=== PATIENT | female | born 1995 | race Caucasian/White ===

== ENCOUNTER 2019-11-04 06:00 | Inpatient (IN) ==
[2019-11-04] MEDS ORDERED: Ondansetron 4 MG/2 ML VIAL IVP PRN ×2 (06:40→08:56)
[2019-11-04] MEDS ORDERED: Naloxone 0.4 MG/ML INJ IVP PRN ×2 (06:40→08:56)
[2019-11-04] MEDS ORDERED: Metoclopramide 10 MG/2 ML VIAL IVP PRN (06:40)
[2019-11-04] MEDS ORDERED: Azithromycin 500 MG in 0.9 % Sodium Chloride 250 ML IVPB ONE (06:40)
[2019-11-04] MEDS ORDERED: Lidocaine 1% 20 ML MDV ID PRN (06:40)
[2019-11-04] MEDS ORDERED: miSOPROStoL 25 MCG TABLET PO PRN (06:40)
[2019-11-04] MEDS ORDERED: Famotidine 20 MG/2 ML VIAL IVP PRN (06:40)
[2019-11-04] MEDS: Ringers Solution, Lactated 1,000 ML IVC SCH ×2 (06:57→17:55)
[2019-11-04 07:03] LABS: Basophils % 0.2 %; Eosinophils # 0.2 K/mcL (0.0-0.6); Eosinophils % 1.2 %; Hematocrit 39.1 % (35.3-44.9); Hemoglobin 13.3 g/dL (11.5-15.4); Immature Granulocytes % 0.3 % (0-4); Lymphocytes # 3.5 K/mcL (0.6-4.6); Lymphocytes % 26.5 %; Mean Corpuscular Hemoglobin 29.3 pg (28.0-33.3); Mean Corpuscular Volume 86.1 fL (83.0-100.0); Mean Platelet Volume 9.4 fL (9.4-12.4); Monocytes # 0.8 K/mcL (0.0-1.3); Neutrophils # 8.7 K/mcL (1.6-8.9); Platelet Count 315 K/mcL (140-400); Red Blood Count 4.54 M/mcL (3.82-4.97); Red Cell Distribution Width 13.9 % (11.5-14.5); Segmented Neutrophils % 65.8 %; White Blood Count 13.2 K/mcL (4.3-11.1)
[2019-11-04 07:25] LABS: Glucose 86 mg/dL (70-105)
[2019-11-04 07:30] LABS: Amphetamine Screen,Urine Negative ng/mL (Cutoff=1000); Barbiturate Screen,Urine Negative ng/mL (Cutoff=200); Benzodiazepines Screen,Urine Negative ng/mL (Cutoff=200); Cannabinoid Screen,Urine Negative ng/mL (Cutoff = 50); Cocaine Screen,Urine Negative ng/mL (Cutoff= 300); Opiate Screen,Urine Negative ng/mL (Cutoff=300); Phencyclidine Screen,Urine Negative ng/mL (Cutoff=25)
[2019-11-04 08:47] LABS: Alanine Aminotransferase 9 Units/L (7-52); Aspartate Amino Transferase 13 Units/L (13-39); BUN/Creatinine Ratio 23 (6-26); Blood Urea Nitrogen 14 mg/dL (6-20); Lactate Dehydrogenase 172 Units/L (140-271); Uric Acid 4.6 mg/dL (2.3-7.6); eGFR For African Americans > 60 (> 60); eGFR For Non-African Americans > 60 (> 60)
[2019-11-04] MEDS ORDERED: *HR* FentaNYL (PF) 100 MCG/2 ML VIAL EP ONE (08:56)
[2019-11-04] MEDS ORDERED: EPHEDrine 50 MG/ML VIAL IVP PRN (08:56)
[2019-11-04] MEDS ORDERED: Ropivacaine/PF 0.2% 20 ML VIAL EP ONE (08:56)
[2019-11-04] MEDS ORDERED: Epidural Premix (fent/bupiv) 110 ML EP SCH (09:00)
[2019-11-04 09:58] LABS: Creatinine,Urine 96 mg/dL; Protein/Creatinine Ratio,Urine 0.28 mg/mg (0.00-0.20)
[2019-11-04] MEDS ORDERED: Oxytocin 20 units/ LR 1000 mL 20 UNIT/1,000 ML BAG IVC SCH (10:30)
[2019-11-04] MEDS ORDERED: *HR* FentaNYL (PF) 100 MCG/2 ML VIAL ONE (16:34)
[2019-11-04] MEDS ORDERED: Ropivacaine/PF 0.2% 20 ML VIAL ONE (16:34)
[2019-11-04] MEDS ORDERED: *HR* Ropivacaine/PF 0.5% 20 ML VIAL ONE (18:30)
[2019-11-05] MEDS ORDERED: Measles/Mumps/Rubella Vacc 0.5 ML VIAL SQ PRN (06:10)
[2019-11-05] MEDS ORDERED: Oxytocin 20 units/ LR 1000 mL 20 UNIT/1,000 ML BAG IVC SCH (06:10)
[2019-11-05] MEDS ORDERED: Acetaminophen 325 MG TABLET PO PRN (06:10)
[2019-11-05] MEDS ORDERED: Rho Immune Globulin 1,500 UNIT SYRINGE IM PRN (06:10)
[2019-11-05] MEDS: Ibuprofen 600 MG TABLET PO PRN ×3 (07:28→20:33)
[2019-11-05] MEDS ORDERED: NON-FORMULARY MEDICATION 1 EACH EACH (Pnv No.95/Ferrous Fum/Folic Ac [Prenatal Caplet] 1 E PO SCH (09:00)
[2019-11-05] MEDS ORDERED: Prenatal Vit/FA 1 EACH TABLET PO SCH (09:00)
[2019-11-06 06:18] LABS: Basophils % 0.2 %; Eosinophils # 0.2 K/mcL (0.0-0.6); Eosinophils % 1.3 %; Hematocrit 33.3 % (35.3-44.9); Immature Granulocytes % 0.4 % (0-4); Lymphocytes # 2.9 K/mcL (0.6-4.6); Lymphocytes % 21.4 %; Mean Corpuscular Hemoglobin 28.6 pg (28.0-33.3); Mean Corpuscular Volume 86.5 fL (83.0-100.0); Mean Platelet Volume 9.4 fL (9.4-12.4); Monocytes # 0.9 K/mcL (0.0-1.3); Monocytes % 6.6 %; Neutrophils # 9.3 K/mcL (1.6-8.9); Platelet Count 235 K/mcL (140-400); Red Blood Count 3.85 M/mcL (3.82-4.97); Red Cell Distribution Width 14.1 % (11.5-14.5); Segmented Neutrophils % 70.1 %; White Blood Count 13.3 K/mcL (4.3-11.1)
[2019-11-06 08:20] VITALS: BP 133/84
[2019-11-06] MEDS: Ibuprofen 600 MG TABLET PO PRN (08:54)
== END 2019-11-06 11:15 | disposition home or self-care (01) | DRG 560 ==
LOC: 1NENULAB 06:15 → 1NENUOBS 11-05 08:08
PROVIDERS: ADMIT Obstetrics & Gynecology; ATTEND Obstetrics & Gynecology

== ENCOUNTER 2021-12-21 21:11 | Inpatient (IN) ==
[~2021-12-21 21:11] MED LIST: *HR* Nalbuphine 10 MG/ML AMPUL IV PRN; Famotidine 20 MG/2 ML VIAL IVP PRN; Metoclopramide 10 MG/2 ML VIAL IVP PRN; Naloxone 0.4 MG/ML INJ IVP PRN; Ondansetron 4 MG/2 ML VIAL IVP PRN
[2021-12-21] MEDS ORDERED: Ringers Solution, Lactated 1,000 ML IVC SCH (21:15)
[2021-12-21] MEDS ORDERED: Oxytocin 30 UNIT/503 ML BAG IVC ONE (21:46)
[2021-12-21 21:51] LABS: Basophils % 0.2 %; Eosinophils # 0.1 K/mcL (0.0-0.6); Eosinophils % 0.7 %; Hematocrit 38.7 % (35.3-44.9); Hemoglobin 13.3 g/dL (11.5-15.4); Immature Granulocytes % 0.4 % (0-4); Lymphocytes # 3.1 K/mcL (0.6-4.6); Lymphocytes % 20.7 %; Mean Corpuscular HGB Conc 34.4 g/dL (31.6-35.5); Mean Corpuscular Hemoglobin 29.1 pg (28.0-33.3); Mean Corpuscular Volume 84.7 fL (83.0-100.0); Mean Platelet Volume 9.7 fL (9.4-12.4); Monocytes # 0.7 K/mcL (0.0-1.3); Monocytes % 4.8 %; Neutrophils # 10.9 K/mcL (1.6-8.9); Platelet Count 324 K/mcL (140-400); Red Blood Count 4.57 M/mcL (3.82-4.97); Red Cell Distribution Width 14.4 % (11.5-14.5); Segmented Neutrophils % 73.2 %; White Blood Count 14.9 K/mcL (4.3-11.1)
[2021-12-21 21:59] LABS: Amphetamine Screen,Urine Negative ng/mL (Cutoff=1000); Barbiturate Screen,Urine Negative ng/mL (Cutoff=200); Benzodiazepines Screen,Urine Negative ng/mL (Cutoff=200); Cannabinoid Screen,Urine Negative ng/mL (Cutoff = 50); Cocaine Screen,Urine Negative ng/mL (Cutoff= 300); Opiate Screen,Urine Negative ng/mL (Cutoff=300); Phencyclidine Screen,Urine Negative ng/mL (Cutoff=25)
[2021-12-21] MEDS ORDERED: EPHEDrine 50 MG/ML VIAL IVP PRN (23:10)
[2021-12-21] MEDS ORDERED: *HR* FentaNYL (PF) 100 MCG/2 ML VIAL EP ONE (23:10)
[2021-12-21] MEDS ORDERED: Ropivacaine/PF 0.2% 20 ML VIAL EP ONE (23:10)
[2021-12-21] MEDS ORDERED: Epidural Premix (fent/bupiv) 110 ML EP SCH (23:15)
[2021-12-22] MEDS ORDERED: *HR* FentaNYL (PF) 100 MCG/2 ML VIAL ONE (02:16)
[2021-12-22] MEDS ORDERED: Ropivacaine/PF 0.2% 20 ML VIAL ONE (02:16)
[2021-12-22] MEDS ORDERED: Ibuprofen 600 MG TABLET PO ONE (02:48)
[2021-12-22] MEDS ORDERED: Rho Immune Globulin 1,500 UNIT SYRINGE IM PRN (05:10)
[2021-12-22] MEDS ORDERED: *HR* OxyCODONE Immed Rel 5 MG TABLET PO PRN (05:10)
[2021-12-22] MEDS ORDERED: Oxytocin 30 UNIT/503 ML BAG IVC SCH (05:10)
[2021-12-22] MEDS ORDERED: Lanolin 7 G OINT...G. TP PRN (05:10)
[2021-12-22] MEDS ORDERED: Ondansetron ODT 4 MG TAB.RAPDIS SL PRN (05:10)
[2021-12-22] MEDS ORDERED: Benzocaine/Menthol 56 GM AEROSOL SPRAY TP PRN (05:10)
[2021-12-22] MEDS: Acetaminophen 325 MG TABLET PO SCH ×3 (08:31→20:14)
[2021-12-22] MEDS ORDERED: Prenatal Vit/FA 1 EACH TABLET PO SCH (09:00)
[2021-12-22] MEDS: Ibuprofen 600 MG TABLET PO SCH ×2 (14:18→20:14)
[2021-12-23 07:45] VITALS: BP 140/94; PULSE 64; TEMP 97.6; O2SAT 99
[2021-12-23] MEDS ORDERED: Lidocaine -MPF 1% 2 ML VIAL INFILT ONE (08:10)
[2021-12-23] MEDS ORDERED: Etonogestrel 68 MG IMPLANT IL ONE (08:11)
[2021-12-23] MEDS: Ibuprofen 600 MG TABLET PO SCH (09:50)
== END 2021-12-23 10:13 | disposition home or self-care (01) | DRG 560 ==
LOC: 1NENULAB → 1NENUOBS 12-22 04:51
PROVIDERS: ADMIT Advanced Practice Midwife; ATTEND Advanced Practice Midwife